=== PATIENT | male | born 1960 | race Caucasian/White ===

== ENCOUNTER 2017-06-30 05:01 | Emergency (ER) | payer SELFPAY ==
[2017-06-30 05:28] VITALS: PULSE 72; BMI 27.6
--- NOTE | 2017-06-30 06:05 | PDOC ---
History of Present Illness - General History Source: Patient Exam Limitations: No Limitations - History of Present Illness Initial Comments: 06/30/17 06:57 Patient is a 56 year old male with a significant past medical history of HTN, Prostate problem (unknown), Diabetes, [place], Alcohol dependence, who presents to the ED with complaints of hematuria that began this morning. Patient reports waking up this morning and noticing presence of blood in his urine when he went to use the restroom, prompting him to come to the ED for further evaluation. He reports experiencing an episode of nose bleeding this morning but is unsure if it is related to his bloody urine. As per patient's friend, patient drinks 1.5 liters of vodka per day. Patient reports that he came into the ED for evaluation for hematuria because he knows he has a prostate problem but is unsure what it is and was worried this was related. Denies Chest pain, Sob. Denies nausea, vomiting. Denies fevers, chills. Denies constipation, diarrhea, dysuria. Denies any other symptoms. Allergies; None Social history: Lives with friend. Former smoker (Last age 17 yrs). No illicit drugs. Current drinker (Last 36 hrs ago). Surgical history: None PMD: None <Vijay Ramos - Last Filed: 06/30/17 06:57> <Sola Mott - Last Filed: 07/02/17 15:38> - General Chief Complaint: Alcohol intoxication Stated Complaint: NOSE BLEED/BLOOD IN URINE Time Seen by Provider: 06/30/17 05:23 Past History <Vijay Ramos - Last Filed: 06/30/17 06:57> - Past Medical History COPD: No Diabetes: Yes HTN: Yes Other medical history: Prostate Problem - Suicide/Smoking/Psychosocial Hx Smoking History: Former smoker Have you smoked in the past 12 months: No If you are a former smoker, when did you quit?: age 17 Information on smoking cessation initiated: No Hx Alcohol Use: Yes Drug/Substance Use Hx: No Substance Use Type: Alcohol <Sola Mott - Last Filed: 07/02/17 15:38> - Past Medical History Allergies/Adverse Reactions: Allergies Allergy/AdvReac Type Severity Reaction Status Date / Time No Known Allergies Allergy Verified 06/30/17 06:26 Home Medications: Ambulatory Orders NK [No Known Home Medication] 06/30/17 Review of Systems - Review of Systems Able to Perform ROS?: Yes Comments:: 06/30/17 06:57 GENERAL/CONSTITUTIONAL: No fever or chills. No weakness. HEAD, EYES, EARS, NOSE AND THROAT: +Nose bleed. No change in vision. No ear pain or discharge. No sore throat. CARDIOVASCULAR: No chest pain or shortness of breath. RESPIRATORY: No cough, wheezing, or hemoptysis. GASTROINTESTINAL: No nausea, vomiting, diarrhea or constipation. GENITOURINARY: +Hematuria No dysuria, frequency. MUSCULOSKELETAL: No joint or muscle swelling or pain. No neck or back pain. SKIN: No rash NEUROLOGIC: No headache, vertigo, loss of consciousness, or change in strength/ sensation. ENDOCRINE: No increased thirst. No abnormal weight change. HEMATOLOGIC/LYMPHATIC: No anemia, easy bleeding, or history of blood clots. ALLERGIC/IMMUNOLOGIC: No hives or skin allergy. All Other Systems: Reviewed and Negative <Vijay Ramos - Last Filed: 06/30/17 06:57> *Physical Exam - Vital Signs Last Vital Signs Temp Pulse Resp BP Pulse Ox 98.4 F 72 20 162/92 96 06/30/17 05:22 06/30/17 05:22 06/30/17 05:22 06/30/17 05:22 06/30/17 05:22 - Physical Exam Comments: 06/30/17 06:57 GENERAL: Awake, alert, and fully oriented, in no acute distress HEAD: No signs of trauma EYES: PERRLA, EOMI, sclera anicteric, conjunctiva clear ENT: Auricles normal inspection, hearing grossly normal, nares patent, oropharynx clear without exudates. Moist mucosa NECK: Normal ROM, supple, no lymphadenopathy, JVD, or masses LUNGS: Breath sounds equal, clear to auscultation bilaterally. No wheezes, and no crackles HEART: Regular rate and rhythm, normal S1 and S2, no murmurs, rubs or gallops ABDOMEN: Soft, nontender, normoactive bowel sounds. No guarding, no rebound. No masses EXTREMITIES: Normal range of motion, no edema. No clubbing or cyanosis. No cords, erythema, or tenderness NEUROLOGICAL: Cranial nerves II through XII grossly intact. Normal speech, normal gait SKIN: Warm, Dry, normal turgor, no rashes or lesions noted. <Vijay Ramos - Last Filed: 06/30/17 06:57> - Vital Signs Last Vital Signs Temp Pulse Resp BP Pulse Ox 98.4 F 72 20 162/92 96 06/30/17 05:22 06/30/17 05:22 06/30/17 05:22 06/30/17 05:22 06/30/17 05:22 <Sola Mott - Last Filed: 07/02/17 15:38> ED Treatment Course - LABORATORY CBC & Chemistry Diagram: 06/30/17 06:23 06/30/17 06:23 - ADDITIONAL ORDERS Additional order review: 06/30/17 06:23 RBC 3.78 L MCV 101.0 H MCHC 34.0 RDW 13.8 Neutrophils % 63.2 Lymphocytes % 20.3 Monocytes % 15.0 H Eosinophils % 0.8 Basophils % 0.7 <Vijay Ramos - Last Filed: 06/30/17 06:57> - LABORATORY CBC & Chemistry Diagram: 06/30/17 06:23 06/30/17 06:23 <Sola Mott - Last Filed: 07/02/17 15:38> Medical Decision Making - Medical Decision Making 06/30/17 06:16 Pt is agreeing to being worked up, but he is amenable to going to alcohol detox program at [facility]. We will check his labs and hydrate him and treat him with DM meds and HTN meds ( which he is always noncompliant with, as he is constantly drunk) Pt's lady friend states that she takes care of him and cooks for him and makes sure that he is well nourished otherwise. 07/02/17 15:38 Pt was signed out to the day team <Sola Mott - Last Filed: 07/02/17 15:38> *DC/Admit/Observation/Transfer - Attestations Scribe Attestion: 06/30/17 06:58 Documentation prepared by Vijay Ramos, acting as biomedical manager for Sola Mott MD/DO. <Vijay Ramos - Last Filed: 06/30/17 06:57> <Mott,Sola - Last Filed: 07/02/17 15:38> Diagnosis at time of Disposition: Alcohol abuse, Epistaxis Hematuria Qualifiers: Hematuria type: unspecified type Qualified Code(s): R31.9 - Hematuria, unspecified - Discharge Dispostion Disposition: HOME Condition at time of disposition: Stable - Referrals Referrals: Joss Mead MD [Staff Physician] - - Patient Instructions Printed Discharge Instructions: DI for Alcohol Abuse, DI for Nosebleed Additional Instructions: Activity as tolerated. Stay hydrated. Blood tests show slightly low platelets (72) and slightly elevated Liver tests, which could both be due to alcohol use. Continue your medications as previously prescribed by your physician. If you change your mind, you can receive alcohol treatment at [facility] anytime. You should follow up with your primary doctor as soon as possible regarding today's emergency department visit. Return to the emergency department for any new or concerning symptoms, particularly persistent or worsening bleeding, abdominal pain, fevers or chills.
[2017-06-30] MEDS ORDERED: SODIUM CHLORIDE 0.9% 500 ML INFUS.BAG IV ONE (06:14)
[2017-06-30] MEDS ORDERED: metFORMIN HCL 500 MG TABLET (FP) PO ONE (06:14)
[2017-06-30] MEDS ORDERED: VALSARTAN 160 MG TABLET (UD) PO ONE (06:15)
[2017-06-30 06:43] LABS: BASO % 0.7 % (0-2.0); EOS % 0.8 % (0-4.5); HEMATOCRIT 38.2 % (35.4-49); LYMPH % 20.3 % (8-40); MCH 34.3 pg (25.7-33.7); NEUT % 63.2 % (42.8-82.8); RBC 3.78 M/mm3 (4.00-5.60); RDW 13.8 % (11.9-15.9); WHITE BLOOD COUNT 3.8 K/mm3 (4.0-10.0)
[2017-06-30 06:47] LABS: ADD RBC MORPHOLOGY YES
[2017-06-30 07:11] LABS: ALBUMIN 2.7 g/dl (3.4-5.0); ANION GAP 9 (8-16); BILIRUBIN,TOTAL 1.3 mg/dL (0.2-1.0); BLOOD UREA NITROGEN 15 mg/dL (7-18); CALCIUM 8.2 mg/dL (8.5-10.1); CHLORIDE 101 mmol/L (98-107); CO2 27 mmol/L (21-32); CREATININE 0.7 mg/dL (0.7-1.3); GLUCOSE,RANDOM 115 mg/dL (74-106); POTASSIUM 3.9 mmol/L (3.5-5.1); SGOT/AST 91 U/L (15-37); SGPT/ALT 87 U/L (12-78); SODIUM 137 mmol/L (136-145); TOT PROT 8.1 g/dl (6.4-8.2)
[2017-06-30 07:12] LABS: ALK PHOS 181 U/L (45-117)
[2017-06-30 07:28] LABS: INR 1.12 (0.82-1.09); PROTHROMBIN TIME (PATIENT) 12.7 SEC (9.98-11.88)
[2017-06-30] MEDS ORDERED: metFORMIN HCL 500 MG TABLET (FP) ONE (09:07)
[2017-06-30] MEDS ORDERED: VALSARTAN 80 MG TABLET (UD) ONE (09:07)
[2017-06-30 09:12] LABS: MEAN PLT VOLUME 9.6 fl (7.5-11.1); PLATELET COUNT 72 K/MM3 (134-434)
[2017-06-30 10:11] LABS: URINE APPEARANCE CLEAR; URINE BILIRUBIN NEGATIVE (NEGATIVE); URINE BLOOD 1+ (NEGATIVE); URINE COLOR LTYELLOW; URINE GLUCOSE (UA) NEGATIVE (NEGATIVE); URINE KETONE NEGATIVE (NEGATIVE); URINE LEUK ESTERASE NEGATIVE (NEGATIVE); URINE NITRITE NEGATIVE (NEGATIVE); URINE PROTEIN NEGATIVE (NEGATIVE); URINE UROBILINOGEN 4.0 E.U/dl mg/dL (0.2-1.0)
[2017-06-30 10:16] VITALS: BP 140/80; TEMP 99.2
--- NOTE | 2017-06-30 11:01 | PDOC ---
*Physical Exam - Vital Signs Last Vital Signs Temp Pulse Resp BP Pulse Ox 99.2 F 72 16 140/80 98 06/30/17 10:16 06/30/17 10:16 06/30/17 10:16 06/30/17 10:16 06/30/17 10:16 - Physical Exam Comments: 06/30/17 10:57 Vital signs stable Comfortably in stretcher, no further bleeding, abdomen benign No tremors or fasciculations or tachycardia ED Treatment Course - LABORATORY CBC & Chemistry Diagram: 06/30/17 06:23 06/30/17 06:23 - ADDITIONAL ORDERS Additional order review: Laboratory Results 06/30/17 06/30/17 06/30/17 09:25 06:23 06:23 PT with INR INR PTT (Actin FS) Sodium 137 Potassium 3.9 Chloride 101 Carbon Dioxide 27 Anion Gap 9 BUN 15 Creatinine 0.7 Creat Clearance w eGFR > 60 Random Glucose 115 H Calcium 8.2 L Total Bilirubin 1.3 H AST 91 H ALT 87 H Alkaline Phosphatase 181 H Total Protein 8.1 Albumin 2.7 L Urine Color Ltyellow Urine Appearance Clear Urine pH 7.0 Ur Specific [place] 1.012 Urine Protein Negative Urine Glucose (UA) Negative Urine Ketones Negative Urine Blood 1+ H Urine Nitrite Negative Urine Bilirubin Negative Urine Urobilinogen 4.0 e.u/dl Ur Leukocyte Esterase Negative Alcohol, Quantitative < 5.0 06/30/17 06/30/17 06:23 06:23 PT with INR 12.70 H INR 1.12 PTT (Actin FS) 30.4 Sodium Potassium Chloride Carbon Dioxide Anion Gap BUN Creatinine Creat Clearance w eGFR Random Glucose Calcium Total Bilirubin AST ALT Alkaline Phosphatase Total Protein Albumin Urine Color Urine Appearance Urine pH Ur Specific [place] Urine Protein Urine Glucose (UA) Urine Ketones Urine Blood Urine Nitrite Urine Bilirubin Urine Urobilinogen Ur Leukocyte Esterase Alcohol, Quantitative 06/30/17 06:23 RBC 3.78 L MCV 101.0 H MCHC 34.0 RDW 13.8 MPV 9.6 Neutrophils % 63.2 Lymphocytes % 20.3 Monocytes % 15.0 H Eosinophils % 0.8 Basophils % 0.7 - Medications Given in the ED: ED Medications Discontinued Medications Generic Name Dose Route Start Last Admin Trade Name Freq PRN Reason Stop Dose Admin Metformin HCl 1,000 mg 06/30/17 06:14 06/30/17 09:00 Glucophage - PO 06/30/17 06:15 1,000 mg ONCE ONE Administration Sodium Chloride 1,000 ml 06/30/17 06:14 06/30/17 08:30 Normal Saline - IV 06/30/17 06:15 1,000 ml ONCE ONE Administration Valsartan 160 mg 06/30/17 06:15 06/30/17 09:00 Diovan - PO 06/30/17 06:16 160 mg ONCE ONE Administration Medical Decision Making - Medical Decision Making 06/30/17 10:58 Received signout on this 56-year-old male with history of alcohol use brought in by his family for concerns of frequent epistaxis and alcohol use. Plan at sign out was to check labs, at the time patient was amenable to referral to alcohol detox. Platelet 72, hemoglobin stable, slightly elevated LFTs consistent with EtOH history. No further bleeding, hemodynamically stable, without complaints. Patient admits to alcohol use but states he does this as a stress reliever because his brother was killed. He does not want to go directly to detox today, discussed with family and they are in agreement that we will give referral information but that he can return home at this time. Return precautions discussed. *DC/Admit/Observation/Transfer Diagnosis at time of Disposition: Alcohol abuse, Epistaxis Hematuria Qualifiers: Hematuria type: unspecified type Qualified Code(s): R31.9 - Hematuria, unspecified - Discharge Dispostion Disposition: HOME Condition at time of disposition: Stable - Referrals Referrals: Joss Mead MD [Staff Physician] - - Patient Instructions Printed Discharge Instructions: DI for Alcohol Abuse, DI for Nosebleed Additional Instructions: Activity as tolerated. Stay hydrated. Blood tests show slightly low platelets (72) and slightly elevated Liver tests, which could both be due to alcohol use. Continue your medications as previously prescribed by your physician. If you change your mind, you can receive alcohol treatment at [facility] anytime. You should follow up with your primary doctor as soon as possible regarding today's emergency department visit. Return to the emergency department for any new or concerning symptoms, particularly persistent or worsening bleeding, abdominal pain, fevers or chills. - Post Discharge Activity
== END 2017-06-30 11:00 | disposition home or self-care (01) ==
LOC: JER 05:01
DX: F10.10 Alcohol abuse, uncomplicated (principal); Y90.9 Presence of alcohol in blood, level not specified; R31.9 Hematuria, unspecified; R04.0 Epistaxis; N42.9 Disorder of prostate, unspecified; Z87.891 Personal history of nicotine dependence
CPT/HCPCS: 36415; 80053; 80307; 81003; 81015; 85025; 85610; 85730; 99285-25